=== PATIENT | male | born 1980 | race African-American/Black ===

== ENCOUNTER 2024-04-13 01:22 | Emergency (ER) | payer MEDICAID, OTHER ==
[~2024-04-13] VITALS: Ht 180.3 cm; Wt 95.4 kg
[2024-04-13] MEDS: CLINDAMYCIN 600MG IV 50 ML IV ONE (02:09)
[2024-04-13] MEDS: KETOROLAC TROMETH 30 MG/ML 1ML VIAL IV ONE (02:09)
--- NOTE | 2024-04-13 02:39 | DVH ---
HISTORY: facial swelling TECHNIQUE: Nonenhanced axial images through the facial bones with coronal and sagittal MPR. Radiation Dose Information: CT Dose: CTDI volume is 67 mGy. Dose-length product is 1477 mGy*cm COMPARISON: None FINDINGS: 2 subcentimeter hyperdense probably foreign bodies at the lateral aspect of the left orbit in the periorbital soft tissues at series 2, image 66. No intraorbital hematoma or intraorbital forei gn body. Mandible: Unremarkable Maxilla: Multiple periapical lucencies in the maxillary alveolus, the largest one in the right 2nd maxillary molar tooth. Zygomatic arches: Unremarkable Nasal bone: Unremarkable Orbits: Unremarkable Sinuses: Mild mucosal thickening in the ethmoid and maxillary sinuses. Facial swelling: Right facial soft tissue swelling. IMPRESSION: 1. Two subcentimeter hyperdense probably foreign bodies at the lateral aspect of the left orbit in th e periorbital soft tissues. No intraorbital hematoma or intraorbital foreign body. 2. Right facial soft tissue swelling. No fluid collection. 3. Multiple periapical lucencies in the maxillary alveolus, the largest one in the right 2nd maxilla ry molar tooth. Dental consultation is suggested. Radiation optimization: All CT scans at this facility use at least one of these dose optimization madhu hniques: automated exposure control mA and/or kV adjustment per patient size (includes targeted exam s where dose is matched to clinical indication) or iterative reconstruction.
--- NOTE | 2024-04-13 02:47 | ED.PDOC ---
Eye-HPI HPI Comments Pt c/o right side tooth pain x2 days. Pt says he has a broken tooth on right upper side, began experiencing pain 2 days ago and woke up this morning with swelling to right side of face. Pt reports throbbing pain, rates pain 9/10. Has taken Motrin without relief. Denies fevers, , nausea, vomiting, difficulty breathing, shortness of breath, throat swelling. Chief Complaint: Tooth Pain Time Seen by MD: 01:39 Reviewed Notes: Nurses Notes, Medications, Allergies Allergies: Coded Allergies: NO KNOWN ALLERGIES (Unverified , 04/13/24) Home Meds Active Scripts Ibuprofen (Ibuprofen) 800 Mg Tab, 1 TAB PO TID PRN for 5 Days, #15 TAB Prov:VIANNEY WOO 04/13/24 Clindamycin Hcl (Clindamycin Hcl) 300 Mg Cap, 300 MG PO QID for 7 Days, #28 CAP Prov:VIANNEY WOO 04/13/24 Information Source: Patient Mode of Arrival: Ambulatory Past Medical History PAST MEDICAL HISTORY: Denies Surgical History: Denies all surgeries Social History Smoker: Non-Smoker Alcohol: Denies ETOH Use Drugs: Denies Drug Use Constitutional: denies: chills, diaphoresis, fatigue, fever, malaise, sweats, weakness, others EENTM: reports: others (Right-sided dental pain with facial swelling); denies: blurred vision, double vision, ear bleeding, ear discharge, ear drainage, ear pain, ear ringing, eye pain, eye redness, hearing loss, mouth pain, mouth swelling, nasal discharge, nose bleeding, nose congestion, nose pain, photophobia, tearing, throat pain, throat swelling, voice changes Physical Exam General Appearance: No Apparent Distress, Normal HEENT: Pharynx Normal, TMs Normal Neck: Full Range of Motion, Non-Tender, Normal, Normal Inspection Respiratory: Chest Non-Tender, Lungs Clear, No Accessory Muscle Use, No Respiratory Distress, Normal Breath Sounds Cardiovascular: No Edema, No JVD, No Murmur, No Gallop, Normal Peripheral Pulses, Regular Rate/Rhythm Breast Exam: Deferred Gastrointestinal: No Organomegaly, Non Tender, No Pulsatile Mass, Normal Bowel Sounds, Soft Genitalia: Deferred Pelvic: Deferred Rectal: Deferred Extremities: No calf tenderness, Normal capillary refill, Normal inspection, Normal range of motion, Non-tender, No pedal edema Musculoskeletal : Apperance: Normal Neurologic: Alert, rn observation II-XII nml as Tested, No Motor Deficits, Normal Affect, Normal Mood, No Sensory Deficits Cerebellar Function: Normal Reflexes: Normal Skin: Dry, Normal Color, Warm Lymphatic: No Adenopathy Was a procedure done? Was a procedure done?: No EENT DIFF Eye: N/A Sore Throat: Kalen's Angina X-Ray, Labs, Meds, VS Vital Signs Date Time Temp Pulse Resp B/P (MAP) Pulse Ox O2 Delivery O2 Flow Rate FiO2 04/13/24 03:19 98.5 70 18 125/81 (96) 95 98.5 04/13/24 01:45 98.7 62 16 122/85 (97) 95 Current Medications Medications (Trade) Dose Ordered Sig/Tyrone Route Start Time Stop Time Status Last Admin Clindamycin Phosphate 50 ml @ 50 mls/hr ONCE ONCE IV 04/13/24 02:00 04/13/24 02:59 DC 04/13/24 02:09 Ketorolac Tromethamine (Toradol Injection) 30 mg ONCE ONCE IV 04/13/24 02:00 04/13/24 02:01 DC 04/13/24 02:09 X-Ray, Labs, Meds, VS Comment CT MAXOFACIAL IMPRESSION: 1. Two subcentimeter hyperdense probably foreign bodies at the lateral aspect of the left orbit in the periorbital soft tissues. No intraorbital hematoma or intraorbital foreign body. 2. Right facial soft tissue swelling. No fluid collection. 3. Multiple periapical lucencies in the maxillary alveolus, the largest one in the right 2nd maxillary molar tooth. Dental consultation is suggested. Patient given Toradol 30 mg IV and started on clindamycin 600 mg IV for facial swelling and dental infection. Continue antibiotics outpatient script clindamycin 300 mg 4 times a day x7 days. Along with ibuprofen 800 mg t.i.d. p.r.n. advised to follow up with dental for consultation and resolution of dental infection. Advised on medication dosing and side effects. Advised to take a probiotic once daily or yogurt once daily. PCP 1-2 days. ER return precautions given patient indicates understanding agrees with discharge plan of care. Time of 1ST Reevaluation: 03:01 Reevaluation 1ST: Improved Patient Education/Counseling: Diagnosis, Treatment, Prognosis, Need For Follow Up Family Education/Counseling: No Family Present Departure 1 Departure Time of Disposition: 03:02 Impression: Primary Impression: Dental infection Disposition: 01 HOME / SELF CARE / HOMELESS Condition: Stable e-Prescriptions Ibuprofen (Ibuprofen) 800 Mg Tab 1 TAB PO TID PRN for 5 Days, #15 TAB Prov: VIANNEY OWO 04/13/24 Clindamycin Hcl (Clindamycin Hcl) 300 Mg Cap 300 MG PO QID for 7 Days, #28 CAP Prov: VIANNEY WOO 04/13/24 Discharged With: Self Critical Care Note Critical Care Time?: No Stability Stability form required: No VIANNEY WOO Apr 13, 2024 02:47
[2024-04-13] MEDS ORDERED: CLIN1CAP70 PO (03:10)
[2024-04-13] MEDS ORDERED: IBUP-1456 PO (03:10)
[2024-04-13 03:19] VITALS: BP 125/81; PULSE 70; RESP 18; TEMP 98.5; O2SAT 95
== END 2024-04-13 03:22 | disposition home or self-care (01) ==
LOC: ER 01:22
DX: K04.7 Periapical abscess without sinus (principal)
CPT/HCPCS: 70486; 96365; 96375; 99285; J1885; J3490

== ENCOUNTER 2024-04-14 07:17 | Emergency (ER) | payer MEDICAID ==
[~2024-04-14] VITALS: Ht 180.3 cm; Wt 94.8 kg
[~2024-04-14 07:17] MED LIST: CLIN1CAP70 PO; IBUP-1456 PO
[2024-04-14 08:00] VITALS: BP 140/83; PULSE 60; RESP 18; TEMP 97.8; O2SAT 99
--- NOTE | 2024-04-14 08:22 | ED.PDOC ---
HPI Allergic reaction HPI Comments 43 year old male presents for possible allergic reaction. He is concerned of left sided tingling. Also feels off balance Unsure if it is due to the ABx rx. Symptoms started this morning. Denies medical hx Denies any other medications Chief Complaint: Allergic Reaction Time Seen by MD: 07:53 Primary Care Provider: NONE Reviewed Notes: Nurses Notes, Medications, Allergies Allergies: Coded Allergies: NO KNOWN ALLERGIES (Unverified , 04/13/24) Home Meds Active Scripts Ibuprofen (Ibuprofen) 800 Mg Tab, 1 TAB PO TID PRN for 5 Days, #15 TAB Prov:VIANNEY WOO 04/13/24 Clindamycin Hcl (Clindamycin Hcl) 300 Mg Cap, 300 MG PO QID for 7 Days, #28 CAP Prov:VIANNEY WOO [employer] 04/13/24 Information Source: Patient Mode of Arrival: Ambulatory Past Medical History PAST MEDICAL HISTORY: Denies Surgical History: Denies all surgeries Social History Smoker: Non-Smoker Alcohol: Denies ETOH Use Drugs: Denies Drug Use All Other Systems: Reviewed and Negative (Per HPI) Physical Exam General Appearance: No Apparent Distress, Normal HEENT: Head (Right facial swelling.), Normal ENT Inspection, Pharynx Normal, TMs Normal Neck: Full Range of Motion, Non-Tender, Normal, Normal Inspection Respiratory: Chest Non-Tender, Lungs Clear, No Accessory Muscle Use, No Respiratory Distress, Normal Breath Sounds Cardiovascular: No Edema, No JVD, No Murmur, No Gallop, Normal Peripheral Pu lses, Regular Rate/Rhythm Breast Exam: Deferred Gastrointestinal: No Organomegaly, Non Tender, No Pulsatile Mass, Normal Bowel Sounds, Soft Genitalia: Deferred Pelvic: Deferred Rectal: Deferred Extremities: No calf tenderness, Normal capillary refill, Normal inspection, Normal range of motion, Non-tender, No pedal edema Musculoskeletal : Apperance: Normal Neurologic: Alert, technical services analyst II-XII nml as Tested, No Motor Deficits, Normal Affect, Normal Mood, No Sensory Deficits, Other (Romberg negative. Pronator drift negative. No stiff finger negative. Heel-to-toe negative) Cerebellar Function: Normal Reflexes: Normal Skin: Dry, Normal Color, Warm Lymphatic: No Adenopathy Was a procedure done? Was a procedure done?: No Differential diagnosis (all) Differential Diagnosis: Urticaria, Other X-Ray, Labs, Meds, VS Vital Signs Date Time Temp Pulse Resp B/P (MAP) Pulse Ox O2 Delivery O2 Flow Rate FiO2 04/14/24 08:00 60 18 99 Room Air 04/14/24 08:00 97.8 60 18 140/83 (102) 99 97.8 04/14/24 07:45 18 99 Room Air* 0 21 04/14/24 07:26 97.8 60 18 140/83 (102) 99 Lab Test 04/14/24 08:28 Range/Units White Blood Count 6.5 4.4-10.8 10^3/uL Red Blood Count 4.60 4.5-5.90 10^6/uL Hemoglobin 15.1 13.5-17.5 g/dL Hematocrit 46.3 41.0-53.0 % Mean Corpuscular Volume 100.7 H 80.0-100.0 fL Mean Corpuscular Hemoglobin 32.9 H 28.0-32.0 pg Mean Corpuscular Hemoglobin Concent 32.7 32.0-36.0 g/dL Red Cell Distribution Width 12.9 11.8-14.3 % Platelet Count 283 140-450 10^3/uL Mean Platelet Volume 8.7 6.9-10.8 fL Neutrophils (%) (Auto) 71.9 37.0-80.0 % Lymphocytes (%) (Auto) 17.9 10.0-50.0 % Monocytes (%) (Auto) 7.5 0.0-12.0 % Eosinophils (%) (Auto) 2.2 0.0-7.0 % Basophils (%) (Auto) 0.5 0.0-2.0 % Neutrophils # (Auto) 4.7 1.6-8.6 10 ^3/uL Lymphocytes # (Auto) 1.2 0.4-5.4 10 ^3/uL Monocytes # (Auto) 0.5 0-1.3 10 ^3/uL Eosinophils # (Auto) 0.1 0-0.8 10 ^3/uL Basophils # (Auto) 0 0-0.2 10 ^3/uL Nucleated Red Blood Cells 0.1 % Sodium Level 140 136-145 mmol/L Potassium Level 4.7 3.5-5.1 mmol/L Chloride Level 105 98-107 mmol/L Carbon Dioxide Level 28 20-31 mmol/L Anion Gap 7 5-15 Blood Urea Nitrogen 6 L 9-23 mg/dL Creatinine 1.10 0.700-1.30 mg/dL Glomerular Filtration Rate Calc 86 >90 mL/min BUN/Creatinine Ratio 5.5 L 10.0-20.0 Serum Glucose 100 74-106 mg/dL Calcium Level 9.8 8.7-10.4 mg/dL X-Ray, Labs, Meds, VS Comment Hx, exam and workup most consistent with peripheral vertigo Differential includes, but not limited to: vertebrobasilar insufficiency vertigo, electrolyte abnormality, dehydration, central Based on History, Exam, and Findings, presentation not consistent with syncope, seizure, stroke, meningitis, symptomatic anemia (gastrointestinal bleed) Hemodynamically stable, afebrile, non toxic appearing. No headache. No focal neuro deficits on exam. Labs benign and not suggestive of dehydration, or significant anemia. No indication for head imaging at this time. There was no evidence of focal motor weakness, dysarthria, aphasia, hearing changes, diplopia, paresthesias or confusion. During the ER visit dizziness has resolved, patient tolerating po fluids with noted steady gait. Advised that vertigo is usually a self limited condition and will resolve. Advised to avoid driving while experiencing significant dizziness. Followup if symptoms do not resolve or if hearing loss, tinnitus or other neurological symptoms occur. On reevaluation, patient had symptomatic improvement. Patient is stable for discharge at this time. External notes reviewed. Test results and diagnostic imaging interpreted. All diagnostic findings, discharge care, education and instructions provided Follow-up with PCP in 2 to 3 days Patient verbalized understanding and agreed to treatment plan Vital signs stable, afebrile, no acute distress noted Patient ambulatory with strong steady gait Advised to return precautions for any new or worsening symptoms, return to ER immediately for re-evaluation Patient is aware that the purpose of this visit was for an acute medical emergency requiring emergent stabilization. Chronic conditions, including malignancies have not been ruled out. Patient is instructed to follow up with PCP as directed and discharge instructions for continued care and workup. If unable to arrange follow-up, patient is to return to the emergency department for reassessment. Patient (parent or legal guardian if applicable) was given verbal and written discharge instructions and acknowledges understanding. Time of 1ST Reevaluation: 09:00 Reevaluation 1ST: Improved Patient Education/Counseling: Diagnosis, Treatment Family Education/Counseling: Diagnosis, Treatment Departure 1 Departure Time of Disposition: 09:05 Impression: Primary Impression: Arm paresthesia, left Additional Impression: Dizziness Disposition: 01 HOME / SELF CARE / HOMELESS Condition: Fair Critical Care Note Critical Care Time?: No Stability Stability form required: No Heart Score Heart Score: Heart Score Response (Comments) Value History N/A 0 EKG N/A 0 Age N/A 0 Risk Factors N/A 0 Troponin N/A 0 Total 0 MIRELLA VERGARA NP Apr 14, 2024 08:22
[2024-04-14 08:37] LABS: Basophils # (auto) 0 10 ^3/uL (0-0.2); Basophils % (auto) 0.5 % (0.0-2.0); Eosinophils # (auto) 0.1 10 ^3/uL (0-0.8); Eosinophils % (auto) 2.2 % (0.0-7.0); Hematocrit 46.3 % (41.0-53.0); Hemoglobin 15.1 g/dL (13.5-17.5); Lymphocytes # (auto) 1.2 10 ^3/uL (0.4-5.4); Lymphocytes % (auto) 17.9 % (10.0-50.0); Mean Corpuscular Hemoglobin 32.9 pg (28.0-32.0); Mean Corpuscular Hgb Conc. 32.7 g/dL (32.0-36.0); Mean Corpuscular Volume 100.7 fL (80.0-100.0); Monocytes # (auto) 0.5 10 ^3/uL (0-1.3); Monocytes % (auto) 7.5 % (0.0-12.0); Neutrophils # (auto) 4.7 10 ^3/uL (1.6-8.6); Neutrophils % (auto) 71.9 % (37.0-80.0); Nucleated Red Blood Cells % 0.1 %; Platelet Count (auto) 283 10^3/uL (140-450); Red Cell Distribution Width 12.9 % (11.8-14.3); White Blood Cell 6.5 10^3/uL (4.4-10.8)
[2024-04-14 08:44] LABS: Chloride 105 mmol/L (98-107); Potassium 4.7 mmol/L (3.5-5.1); Sodium 140 mmol/L (136-145)
[2024-04-14 08:45] LABS: Anion Gap 7 (5-15); Carbon Dioxide 28 mmol/L (20-31)
[2024-04-14 08:46] LABS: Calcium 9.8 mg/dL (8.7-10.4)
[2024-04-14 08:50] LABS: BUN/Creatinine Ratio 5.5 (10.0-20.0); Glucose 100 mg/dL (74-106)
[2024-04-14 08:52] LABS: Blood Urea Nitrogen 6 mg/dL (9-23)
== END 2024-04-14 09:10 | disposition home or self-care (01) ==
LOC: ER 07:17
DX: R20.2 Paresthesia of skin (principal); R42 Dizziness and giddiness; Z79.899 Other long term (current) drug therapy
CPT/HCPCS: 36415; 80048; 85025